=== PATIENT | male | born 1940 | race Caucasian/White ===

== ENCOUNTER → 2016-12-27 | Outpatient (CLI) | payer OTHER ==
[~2016-12-27] MED LIST: ASPCH81X PO; LOSA100T2 PO; NAPR1TAB9 PO; PANT40TA PO; TRAM37.52 PO
[2016-12-27 10:16] LABS: BASO % 0.3 %; BASO ABS # 0.02 K/uL (0-0.2); COMPLETE YES; HEMATOCRIT 42.7 % (42-52); LYMPH ABS # 1.62 K/uL (1.2-3.4); MEAN CELL VOLUME 90.9 fL (80-100); MEAN CORPUSCULAR HEMOGLOBIN 30.6 pg (25-34); MEAN CORPUSCULAR HGB CONC 33.7 g/dl (32-36); MEAN PLATELET VOLUME 11.1 fL (7.4-10.4); NEUT % 63.7 %; PLATELET COUNT 271 K/uL (130-400); WHITE BLOOD COUNT 5.99 K/uL (4.8-10.8)
[2016-12-27 10:17] LABS: URINE APPEARANCE CLEAR (CLEAR); URINE BILIRUBIN NEG (NEG); URINE COLOR YELLOW; URINE NITRITE NEG (NEG); URINE PH 7.5 (4.5-7.5); UROBILINOGEN NEG (NEG)
[2016-12-27 10:29] LABS: MANUAL MICROSCOPIC REQUIRED? NO; REVIEW REQ? NO
[2016-12-27 10:33] LABS: ALT/SGPT 21 U/L (12-78); AST/SGOT 16 U/L (15-37); BLOOD UREA NITROGEN 24 mg/dl (7-18); BUN/CREATININE RATIO 22.2 (10-20); CARBON DIOXIDE 30 mmol/L (21-32); CHLORIDE 108 mmol/L (98-107); GLUCOSE 85 mg/dl (70-99); POTASSIUM 4.2 mmol/L (3.5-5.1); SODIUM 141 mmol/L (136-145)
[2016-12-27 10:38] LABS: ALB/GLOB RATIO 1.2 (0.9-2); ALKALINE PHOSPHATASE 48 U/L (45-117); CHOLESTEROL 166 mg/dl (0-200); CHOLESTEROL/HDL RATIO 2.9; HDL CHOLESTEROL 58 mg/dl; LDL CHOLESTEROL CALCULATED 96 mg/dl; PROSTATE SPECIFIC ANTIGEN 0.938 ng/ml (0.000-4.000); TRIGLYCERIDES 60 mg/dl (0-150); VERY LOW DENSITY LIPOPROT CALC 12 mg/dl
--- NOTE | 2017-01-04 07:37 | CODING QUERY MEDICAL NECESSITY ---
SUPPORTING DIAGNOSIS NEEDED Dr. Greenwood, A supporting diagnosis is required for the test/procedure performed on this patient in order for us to be reimbursed by the patient's insurance. Please provide a supporting diagnosis for the following test/procedure listed below next to the test name along with your signature. *If there is no additional diagnosis for this patient that would support the following test/procedure please document that below next to the test/procedure. Test(s)/Procedure(s) that require a supporting diagnosis: * 21704 PSA DIAGNOSIS: DATE OF SERVICE: 12/27/16 Provider Signature: Date: Thank you Maurizio Hernández [facility] Information Management Once completed, please kindly fax back to [phone] For questions please call [phone]
== END | disposition home or self-care (01) ==
LOC: C.LAB1850 08:59
PROVIDERS: ATTEND Internal Medicine Pulmonary Disease
DX: Z00.00 Encounter for general adult medical examination without abnormal findings (principal); I10 Essential (primary) hypertension; M48.06 Spinal stenosis, lumbar region; M43.10 Spondylolisthesis, site unspecified; K21.9 Gastro-esophageal reflux disease without esophagitis; Z12.5 Encounter for screening for malignant neoplasm of prostate